=== PATIENT | male | born 1950 | race Caucasian/White ===

== ENCOUNTER → 2016-08-22 | Day surgery (SDC) | payer MEDICARE, OTHER ==
[~2016-08-22] MED LIST: ATOR20TA PO; IV RINGERS,LACTATED 1000ML 1,000 ML IV ONE; LIDOCAINE 2% PF Vial for OR 5 ML VIAL. ONE; LISI10TA2 PO; METO-269 PO; PROPOFOL 40 ML IV ONE; SITA1TAB11 PO; ePHEDrine PF IN SALINE 50 MG/5 ML DISP.SYRIN IV ONE
--- NOTE | 2016-08-22 10:35 | PDOC1 ---
HISTORY & PHYSICAL H&P Chau Neri [id number] 1950 07/28/2016 10:15 AM 03/26 [facility] [employer] [facility], [facility] OUR PATIENTS COME FIRST [address] [place] [address]. [phone] Patient: Chau Neri Date of : 1950 Date: 07/28/2016 10:15 AM Visit Type: Consult This 66 year old male presents for H/o colorectal polyp. History of Present Illness: 1. H/o colorectal polyp No prior screening. Denies risk factors. Pertinent negatives include abdominal pain, change in bowel habits, change in stool caliber, constipation, decreased appetite, diarrhea, melena, nausea, rectal bleeding, vomiting, weight gain and weight loss. Additional information: No family history of colon cancer , No family history of Crohn's/colitis, No NSAID/ASA use and Patient was due for colonoscopy in 2010. Last colonoscopy in 2005. INTAKE COMMENTS: Intake Comments: Nurse Note: the pt is here today for a repeat colonoscopy, he states that he had one 15 years ago that he had polyps. He had another one a few years ago and there were no polyps. PROBLEM LIST: Problem Description Onset Date Chronic Notes Influenza vaccine needed 12/17/2012 Y Mapped from [facility] Chronic Conditions table on 10/13/2013 by the ICD9 to SNOMED Bulk Mapping Utility. The mapped diagnosis code was Needs flu shot, V04.81, added by Des Rodriguez, with responsible provider Des Rodriguez MD MD. Onset date 12/17/2012; last addressed on 2012. Benign essential hypertension 10/31/2011 Y Mapped from [facility] Chronic Conditions table on 10/13/2013 by the ICD9 to SNOMED Bulk Mapping Utility. The mapped diagnosis code was Hypertension, Benign, 401.1, added by Des Rodriguez, with responsible provider Des Rodriguez MD. Onset date 10/31/2011; last addressed on 06/30/2013. Hyperlipidemia 10/31/2011 Y Mapped from [facility] Chronic Conditions table on 2013 by the ICD9 to SNOMED Bulk Mapping Utility. The mapped diagnosis code was Hyperlipidemia, 272.4, added by Des Rodriguez, with responsible provider Des Rodriguez MD. Onset date 10/31/2011; last addressed on 06/30/2013. Proteinuria 10/31/2011 Y Mapped from [employer] Chronic Conditions table on 10/13/2013 by the ICD9 to SNOMED Bulk Mapping Utility. The mapped diagnosis code was Proteinuria, 791.0, added by Des Rodriguez, with responsible provider Des Rodriguez MD. Onset date 10/31/2011; last addressed on 06/30/2013. Type II diabetes mellitus 02/05/2014 Type II diabetes mellitus w/o complication 10/31/2011 Y Mapped from [facility] Chronic Conditions table on 02/06/2014 by Alejandrina Rodriguez. The mapped diagnosis code was Diabetes Mellitus Type 2, Uncomplicated,250.00, added by Des Rodriguez , with responsible provider Des Rodriguez MD. Onset date 10/31/2011; last addressed on 03/31/2013. PAST MEDICAL/SURGICAL HISTORY (Detailed) Disease/disorder Onset Date Management Date Comments Anemia Diabetes GERD Hyperlipidemia Hypertension trachestomy scar teenager Medications (Active): Started Medication Directions Instruction Stopped 04/28/2016 FreeStyle Lite Strips USE 1 TEST STRIP DAILY (NEED APPOINTMENT) 04/26/2016 Janumet 50 mg-1,000 mg tablet TAKE 1 TABLET TWICE A DAY WITH MEALS 04/26/2016 Lipitor 20 mg tablet TAKE 1 TABLET DAILY (NEED APPOINTMENT) 04/26/2016 lisinopril 10 mg tablet TAKE 1 TABLET DAILY 04/26/2016 metoprolol succinate ER 50 mg tablet,extended release 24 hr TAKE 1 TABLET DAILY (NEED APPOINTMENT) Allergies: Ingredient Reaction Medication Name Comment LANSOPRAZOLE back pain NO KNOWN DRUG ALLERGIES REVIEW OF SYSTEMS System Neg/Pos Details Constitutional Negative Weight gain and weight loss. GI Negative Abdominal pain, change in bowel habits, change in stool caliber, constipation, decreased appetite, diarrhea, melena, nausea, rectal bleeding and vomiting. VITAL SIGNS Time BP mm/Hg Pulse /min Resp /min Temp F Ht ft Ht in Ht cm Wt lb Wt kg BMI kg/ m2 BSA m2 O2 Sat% 10:57 AM 132/76 80 97.7 5.0 10.00 177.80 206.60 93.712 29.64 96 MEASURED BY Time Measured by 10:57 AM [facility] PHYSICAL EXAM: Exam Findings Details Constitutional Normal Well developed. Respiratory Normal Inspection - Normal. Cardiovascular Normal Regular rate and rhythm. No murmurs, gallops, or rubs. Abdomen Normal Inspection - Normal. No abdominal tenderness. No hepatic enlargement. No splenic enlargement. No hernia. No ascites. Assessment/Plan # Detail Type Description 1. Assessment History of colon polyps (Z86.010). Patient Plan schedule colonoscopy Plan Orders Further diagnostic evaluations ordered today include(s) Colonoscopy to be performed today. He is to schedule a follow-up visit with Ghulam Saucedo MD upon completion of work-up Electronically signed by: Ghulam Saucedo MD 07/28/2016 12:01 PM Document generated by: Ghulam Saucedo 07/28/2016 12:01 PM Joe Arreola MD, Family Practice; Nick Garrison MD Internal Medicine; Des Rodriguez MD, Internal Medicine; Zay Saucedo MD Internal Medicine; Ghulam Saucedo MD, Gastroenterology; Dains Randall MD, Rheumatology, S. Vladimir Pickett, Physical Medicine/Rehab JAdalid Hernandez APRN ------ 08/22/16 Patient seen and examined. No change in H&P. GHULAM SAUCEDO MD August 22, 2016 10:35
--- NOTE | 2016-08-22 11:15 | PDOC4 ---
GI OP Report - Dr. Puri Date/Time DATE: 08/22/16 TIME: 11:14 Attending Physician Ghulam Puri MD Referring Physician Indications Personal history of colonic polyps Pre-Op See the Anesthesia note for documentation of the administered medications Procedures Colonoscopy Findings - The entire examined colon is normal on direct and retroflexion views. - No specimens collected. Plan - Discharge patient to home. - Patient has a contact number available for emergencies. The signs and symptoms of potential delayed complications were discussed with the patient. Return to normal activities tomorrow. Written discharge instructions were provided to the patient. - Resume regular diet. - Continue present medications. - Repeat colonoscopy in 5 years for surveillance. - Return to my office as needed. GHULAM PURI MD August 22, 2016 11:15
[2016-08-22 11:40] VITALS: BP 13/80
== END | disposition home or self-care (01) ==
LOC: SURG 09:51
PROVIDERS: ATTEND Internal Medicine Gastroenterology
DX: Z09 Encounter for follow-up examination after completed treatment for conditions other than malignant neoplasm (principal); Z86.010 Personal history of colon polyps; E11.9 Type 2 diabetes mellitus without complications; I10 Essential (primary) hypertension; Z87.39 Personal history of other diseases of the musculoskeletal system and connective tissue; Z86.39 Personal history of other endocrine, nutritional and metabolic disease
CPT/HCPCS: 45378; J2704